=== PATIENT | male | born 1995 | race Caucasian/White ===

== ENCOUNTER 2019-01-03 10:57 | Outpatient (CLI) | payer OTHER ==
[2016-02-03 20:12] VITALS: BP 129/66
--- NOTE | 2019-01-03 15:07 | Diagnostic Imaging Report ---
<p>Your browser does not support iframes.</p> TRACY SYED [place] [id number] [facility] [address] [place], [place]. [address] Report Submission Date: Jan 03, 2019 1:20:37 PM CDT Patient Study Name: PIERRE JON Date: Jan 03, 2019 11:16:41 AM CDT Modality Type: CT\SR Gender: M Description: CT ABD PELVIS W/O CO : 89 Institution: [facility] Physician: TRACY SYED Examination: CT Abdomen/pelvis History: LEFT SIDED FLANK PAIN X2 DAYS Comparison exams: None available Technique: CT Abdomen/pelvis without IV protocol. Findings: Liver, spleen, adrenals, pancreas, kidneys and gallbladder are without gross irregularity given exam technique. No gallstone. No suspicious renal calcifications. Ureters are nondilated in their course through the abdomen and pelvis. No central calcifications. Bladder margin within normal limits. Abdominal aorta without aneurysm or peripheral atherosclerotic disease. Cardiac silhouette is not enlarged. No pericardial effusion. Bowel unopacified limiting evaluation. No abnormal dilation. Stool within the large bowel limiting sensitivity. No mesenteric inflammatory changes or free fluid. Appendix is visualized and is without inflammatory changes. Osseous structures appropriate for age. Lung bases without infiltrate. No effusion. Impression: No acute upper abdominal organ inflammatory process. No abnormal bowel dilation or inflammation. Moderate large bowel stool. No gallstone. No suspicious renal calcifications or abnormal ureteric dilation. No lung base consolidation or effusion. Electronically signed on Jan 03, 2019 1:20:37 PM CDT by: Fran MONTIEL
== END 2019-01-03 11:00 ==
LOC: RAD 10:57
PROVIDERS: ATTEND Family Medicine
DX: R10.9 Unspecified abdominal pain (principal)
CPT/HCPCS: 74176